=== PATIENT | male | born 1965 | race African-American/Black ===

== ENCOUNTER 2020-03-27 17:08 | Emergency (ER) | payer OTHER ==
[~2020-03-27] VITALS: Ht 180.3 cm; Wt 95.3 kg
[~2020-03-27 17:08] MED LIST: KEFLEX500 MG PO; MOTRIN800 MG PO; Motrin,Rufen800 MG PO; XARELTO STARTER20 MG PO
[2020-03-27] MEDS ORDERED: NAPROSYN500 MG PO (19:16)
== END 2020-03-27 19:43 | disposition home or self-care (01) ==
LOC: ED 17:08
DX: M25.561 Pain in right knee (principal)

== ENCOUNTER 2022-10-11 22:41 | Emergency (ER) | payer OTHER ==
[~2022-10-11] VITALS: Ht 180.3 cm; Wt 102.1 kg
[~2022-10-11 22:41] MED LIST changes: +NAPROSYN500 MG PO
[2022-10-12 00:01] LABS: BASO % 0.5 % (0.0-1.0); EOS % 0.3 % (1.0-4.0); HEMATOCRIT 46.6 % (42.0-52.0); LYMPH # 1.1 10*3/uL (1.3-4.4); LYMPH % 16.7 % (27.0-41.0); MEAN CELL VOLUME 89.1 fl (80.0-94.0); MEAN CORPUSCULAR HGB 29.8 pg (27.0-31.0); MEAN CORPUSCULAR HGB CONC 33.5 g/dl (33.0-37.0); MEAN PLATELET VOLUME 9.7 fl (9.6-12.3); MONO # 0.6 10*3/uL (0.1-1.0); MONO % 9.1 % (3.0-9.0); NEUT # 4.6 10*3/uL (2.3-7.9); NEUT % 73.1 % (47.0-73.0); PLATELET COUNT AUTOMATED 214 10*3/uL (130-400); RED BLOOD COUNT 5.23 10*6/uL (4.50-5.90); RED CELL DISTRI WIDTH 13.5 % (0-14.5); WHITE BLOOD COUNT 6.4 10*3/uL (4.8-10.8)
[2022-10-12 00:36] LABS: BILIRUBIN Negative (Negative); BLOOD 3+ (Negative); CLARITY Clear (Clear); COLOR Yellow (Yellow); GLUCOSE Negative (Negative); KETONE 1+ (Negative); LEUKO ESTERASE Negative (Negative); NITRITE Negative (Negative); PH 5.5 (4.5-8.0)
[2022-10-12 00:53] LABS: RBC 16-20 rbc/hpf (0-2)
[2022-10-12 00:54] LABS: BACTERIA 1+; FINE GRANULAR CAST 0-2
[2022-10-12 01:53] LABS: ALKALINE PHOSPHATASE 56 U/L (46-116); BUN 12 mg/dl (9-23); CHLORIDE 99 mmol/L (98-107); POTASSIUM 3.6 mmol/L (3.4-5.1); SGPT/ALT 48 U/L (10-49); TOTAL PROTEIN 7.4 gm/dL (6.0-8.0)
[2022-10-12] MEDS ORDERED: CLARITIN10 MG PO (06:43)
== END 2022-10-12 06:53 | disposition home or self-care (01) ==
LOC: ED 22:41
PROVIDERS: Emergency Medicine
DX: B34.9 Viral infection, unspecified (principal); Z20.822 Contact with and (suspected) exposure to COVID-19; R19.7 Diarrhea, unspecified; Z79.899 Other long term (current) drug therapy; Z86.718 Personal history of other venous thrombosis and embolism

== ENCOUNTER 2024-05-09 17:34 | Emergency (ER) | payer OTHER ==
[~2024-05-09] VITALS: Ht 180.3 cm; Wt 108.9 kg
[~2024-05-09 17:34] MED LIST changes: +CLARITIN10 MG PO
[2024-05-09] MEDS ORDERED: Tetracaine Hydrochloride 0.5% 4 ML BOT OPH ONE (18:05)
== END 2024-05-09 18:50 | disposition short-term general hospital (02) ==
LOC: ED 17:34
DX: R51.9 Headache, unspecified (principal); M54.2 Cervicalgia; H53.8 Other visual disturbances; Z98.890 Other specified postprocedural states; Z96.652 Presence of left artificial knee joint; Z86.718 Personal history of other venous thrombosis and embolism; V43.52XA Car driver injured in collision with other type car in traffic accident, initial encounter; Y93.89 Activity, other specified; Y92.410 Unspecified street and highway as the place of occurrence of the external cause; Y99.8 Other external cause status